=== PATIENT | female | born 1985 | race American Indian/Alaskan Native ===

== ENCOUNTER 2019-04-10 22:28 | Emergency (ER) | payer OTHER, BC ==
--- NOTE | 2019-04-11 00:57 | EDM.PDOC ---
ED HPI GENERAL MEDICAL PROBLEM - General Chief Complaint: Lower Extremity Injury/Pain Stated Complaint: RT ANKLE INJURY Time Seen by Provider: 04/10/19 22:50 Source of Information: Reports: Patient History Limitations: Reports: No Limitations - History of Present Illness INITIAL COMMENTS - FREE TEXT/NARRATIVE: Patient presents with concern for injury to her right ankle as she was at work earlier this evening. 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 She heard a pop, and has been unable to walk on it since that time. She notes that it is quite swollen, and he came here to be evaluated. She has a history of rheumatoid arthritis, and has had some trouble with falls. She also has a history of a remote sprain to that ankle , but no previous surgeries. She does not note any numbness or tingling in her foot, does not note any pain elsewhere in her foot outside of her ankle that is not chronic. She is otherwise without any injury, as she was able to tuck and roll her body into the floor and did not catch herself with her hands. Did not hit her head. Has otherwise felt well Right ankle Pain Score (Numeric/FACES): 8 - Related Data Allergies Allergy/AdvReac Type Severity Reaction Status Date / Time No Known Allergies Allergy Verified 04/10/19 22:43 Home Meds: Home Meds Ibuprofen [Ibu] 800 mg PO DAILY 04/10/19 [History] Norethindrone-Ethinyl Estrad [Alyacen 7-7-7-28 Tablet] 1 tab PO DAILY 04/10/19 [ History] Omeprazole Magnesium [Prilosec Otc] 20 mg PO DAILY 04/10/19 [History] predniSONE [Prednisone] 10 mg PO DAILY 04/10/19 [History] Past Medical History HEENT History: Reports: Impaired Vision Respiratory History: Reports: Asthma Gastrointestinal History: Reports: GERD 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 Social & Family History - Family History Family Medical History: Noncontributory - Tobacco Use Smoking Status *Q: Never Smoker Second Hand Smoke Exposure: Yes - Caffeine Use Caffeine Use: Reports: Coffee, Energy Drinks, Soda, Tea - Alcohol Use Alcohol Use History: No - Recreational Drug Use Recreational Drug Use: No Review of Systems - Review of Systems Review Of Systems: ROS reveals no pertinent complaints other than HPI. ED EXAM, GENERAL - Physical Exam Exam: See Below Free Text/Narrative:: Gen.: Alert, very pleasant or distress. Right ankle is swollen on the lateral malleolus, and she has posterior malleoli tenderness. She has no tenderness elsewhere in her foot that she notes to be new, no fifth metatarsal tenderness, no medial malleoli tenderness. Anterior and posterior drawer testing does not reveal any laxity of ligaments. She is able to flex and extend her ankle with some pain. She is not able to bear weight. Course - Vital Signs Text/Narrative:: X-ray ordered, patient without any other injury. Likely will need ankle brace versus boot, also requesting note for accommodation work. 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 Ice given to patient, declines any further pain medication at this time Last Recorded V/S: Last Vital Signs Temp 36.6 C 04/11/19 01:04 Pulse 81 04/11/19 01:04 Resp 18 04/11/19 01:04 BP 141/96 H 04/11/19 01:04 Pulse Ox 100 04/11/19 01:04 - Re-Assessments/Exams Free Text/Narrative Re-Assessment/Exam: X-ray reviewed, I do not see any acute fracture. Official read is pending. Attempted ankle splint, patient still unable to ambulate, so given short boot and can switch to ankle splint once able to ambulate with it. She is unable to use crutches because of her RA. Follow-up with PCP later next week if her symptoms are not resolving as she may need repeat x-ray. No written to provide accommodations for work. She will contact her superintendent drilling and production on Friday regarding fall. All questions were answered, she is in agreement with this plan Departure - Departure Time of Disposition: 00:48 Disposition: Home, Self-Care 01 Clinical Impression: Right ankle sprain - Discharge Information *PRESCRIPTION DRUG MONITORING PROGRAM REVIEWED*: Not Applicable *COPY OF PRESCRIPTION DRUG MONITORING REPORT IN PATIENT MARIA DOLORES: Not Applicable Instructions: Ankle Sprain Referrals: Gayathri De La Rosa PA [Primary Care Provider] - Forms: ED Department Discharge Additional Instructions: call superintendent drilling and production on Friday AM call PCP if pain not improved by Friday - see if can be seen late in week I do not see a fracture on xray ankle brace as needed for comfort and to help with movement. Can use antonio wrap if needed until swelling goes down enough to wear ibuprofen/tylenol for pain, ice, keep elevated qing next 2-3 days note given for work
[2019-04-11 01:13] VITALS: BP 141/96
--- NOTE | 2019-04-12 13:16 | CR ---
INDICATION: Fall with ankle pain and swelling laterally. RIGHT ANKLE: Three views of the right ankle were obtained and revealed soft tissue swelling about the ankle. There is a calcific density or possibly a very tiny crescent-shaped sliver of bone inferior to the lateral malleolus, which could represent a tiny avulsion chip fracture fragment or possibly a dystrophic calcification from previous soft tissue injury. Otherwise, the ankle mortise appeared to be intact without an overt fracture or dislocation identified. A tiny plantar calcaneal spur is noted. Overlying bone density is normal. IMPRESSION: A tiny avulsion chip fracture fragment is difficult to exclude inferior to the lateral malleolus - correlate clinically. Followup study in 10- 14 days may be helpful. MTDD
== END 2019-04-11 01:10 | disposition home or self-care (01) ==
LOC: FB.ED 22:28
DX: S93.401A Sprain of unspecified ligament of right ankle, initial encounter (principal); K21.9 Gastro-esophageal reflux disease without esophagitis; M06.9 Rheumatoid arthritis, unspecified; Z79.899 Other long term (current) drug therapy; Z90.49 Acquired absence of other specified parts of digestive tract; Z77.22 Contact with and (suspected) exposure to environmental tobacco smoke (acute) (chronic); X50.1XXA Overexertion from prolonged static or awkward postures, initial encounter
CPT/HCPCS: 73610-RT; 99283-25

== ENCOUNTER 2021-03-20 12:51 | Emergency (ER) | payer BC ==
[2021-03-20] MEDS ORDERED: Ondansetron 4 MG Tab.DIS PO ONE (13:04)
[2021-03-20] MEDS ORDERED: Acetaminophen/HYDROcodone 325-5 MG Tab PO ONE (13:05)
--- NOTE | 2021-03-20 14:08 | EDM.PDOC ---
ED HPI GENERAL MEDICAL PROBLEM - General Chief Complaint: Abdominal Pain Time Seen by Provider: 03/20/21 13:00 Source of Information: Reports: Patient History Limitations: Reports: No Limitations - History of Present Illness INITIAL COMMENTS - FREE TEXT/NARRATIVE: Patient presented to the ED because of vaginal bleeding like menses which started yesterday and is worse today. She passed clotted blood and has been having uterine cramps which she rates at 7-9/10. She has also has nausea and vomiting ones. She is on unknown BC implant that will last for 3 years. 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 Social & Family History - Family History Family Medical History: No Pertinent Family History - Tobacco Use Tobacco Use Status *Q: Never Tobacco User Second Hand Smoke Exposure: Yes - Caffeine Use Caffeine Use: Reports: Coffee, Soda - Recreational Drug Use Recreational Drug Use: No ED ROS GENERAL - Review of Systems Review Of Systems: See Below Constitutional: Reports: Weakness HEENT: Reports: No Symptoms Respiratory: Reports: No Symptoms Cardiovascular: Reports: No Symptoms Endocrine: Reports: No Symptoms GI/Abdominal: Reports: Nausea, Vomiting : Reports: No Symptoms Musculoskeletal: Reports: No Symptoms Skin: Reports: No Symptoms Neurological: Reports: No Symptoms ED EXAM, RENAL/ - Physical Exam Exam: See Below Exam Limited By: No Limitations General Appearance: Alert, No Apparent Distress Ears: Normal External Exam, Normal Canal Nose: Normal Inspection, Normal Mucosa Throat/Mouth: Normal Inspection, Normal Lips Head: Atraumatic, Normocephalic Neck: Normal Inspection, Supple, Non-Tender, Full Range of Motion Respiratory/Chest: No Respiratory Distress, Lungs Clear, Normal Breath Sounds, No Accessory Muscle Use, Chest Non-Tender Cardiovascular: Normal Peripheral Pulses, Regular Rate, Rhythm, No Edema, No Gallop, No JVD, No Murmur, No Rub GI/Abdominal: Normal Bowel Sounds, Soft, Non-Tender, No Organomegaly, No Distention, No Abnormal Bruit, No Mass Back Exam: Normal Inspection, Full Range of Motion Extremities: Normal Inspection, Normal Range of Motion, Non-Tender, No Pedal Edema, Normal Capillary Refill Neurological: Alert, Oriented, CN II-XII Intact, Normal Reflexes, No Motor/Sensory Deficits Psychiatric: Normal Affect, Normal Mood Skin Exam: Warm, Dry, Intact, Normal Color Course - Vital Signs Text/Narrative:: Lab result was reviewed and discussed with patient and her parents Zofran ODT 4 mg PO x1 [place] 5/325, 2 po x1 Last Recorded V/S: Last Vital Signs Temp 36.5 C 03/20/21 12:51 Pulse 91 03/20/21 14:21 Resp 18 03/20/21 14:21 BP 140/79 03/20/21 14:21 Pulse Ox 99 03/20/21 14:21 - Orders/Labs/Meds Labs: Laboratory Tests 03/20/21 Range/Units 13:36 Hgb 10.1 L (11.4-15.5) g/dL Meds: Medications Discontinued Medications Generic Name Dose Route Start Last Admin Trade Name Freq PRN Reason Stop Dose Admin Hydrocodone Bitart/Acetaminophen 2 tab 03/20/21 13:05 03/20/21 13:11 Acetaminophen/Hydrocodone 325-5 Mg Tab PO 03/20/21 13:06 2 tab ONETIME ONE Administration Ondansetron HCl 4 mg 03/20/21 13:04 03/20/21 13:11 Ondansetron 4 Mg Tab.Dis PO 03/20/21 13:05 4 mg ONETIME ONE Administration Departure - Departure Time of Disposition: 14:15 Disposition: Home, Self-Care 01 Condition: Good Clinical Impression: Abnormal uterine bleeding, Anemia, Dysmenorrhea - Discharge Information Instructions: Abnormal Uterine Bleeding, Preventing Iron Deficiency Anemia, Adult Referrals: Gayathri De La Rosa PA [Primary Care Provider] - Forms: ED Department Discharge Additional Instructions: Please read discharge instructions on abnormal uterine bleeding and anemia Ferrous sulfate twice daily for 1 month Vitamin C 1 tablet daily for 1 month, it enhance iron absorption Provera 10 mg daily for 10 days Follow up with your doctor after 1 month to recheck your hemoglobin Sepsis Event Note (ED) - Evaluation Sepsis Screening Result: No Definite Risk - Focused Exam Vital Signs: Vital Signs Temp Pulse Resp BP Pulse Ox 03/20/21 14:21 91 18 140/79 99 03/20/21 12:51 36.5 C 90 20 133/70 100
[2021-03-20 16:19] VITALS: BP 140/79; PULSE 91
== END 2021-03-20 14:24 | disposition home or self-care (01) ==
LOC: FB.ED 12:51
DX: N94.6 Dysmenorrhea, unspecified (principal); D64.9 Anemia, unspecified; J45.909 Unspecified asthma, uncomplicated; K21.9 Gastro-esophageal reflux disease without esophagitis; Z77.22 Contact with and (suspected) exposure to environmental tobacco smoke (acute) (chronic); Z88.5 Allergy status to narcotic agent; Z79.899 Other long term (current) drug therapy
CPT/HCPCS: 36415; 85018; 99284; A9270-GY